=== PATIENT | female | born 1985 | race Caucasian/White ===

== ENCOUNTER 2017-10-20 10:57 | Day surgery (SDC) | payer OTHER ==
[2017-10-20 11:33] VITALS: BP 91/53; TEMP 99.8; BMI 32.1
[2017-10-20] MEDS ORDERED: Piperacillin/Tazobactam 3.375 GM in Sodium Chloride 0.9% 100 ML IVPB SCH ×2 (14:15→18:00)
[2017-10-20 14:44] LABS: #Lymphocytes 0.7 thou/uL (1.20-3.40); #Monocytes 0.5 thou/uL (0.11-0.59); #Neutrophils 8.7 thou/uL (1.40-6.50); %Basophils 0.1 % (0.0-1.0); %Eosinophils 0.2 % (0.0-10.0); %Lymphocytes 7.3 % (21.0-51.0); %Monocytes 5.1 % (0.0-10.0); %Neutrophils 87.3 % (42.0-75.0); Hemoglobin 8.7 g/dL (12.0-16.0); Mean Corpuscular HGB CONC 36.3 g/dL (32.0-36.0); Mean Corpuscular Hemoglobin 34.2 pg (27.0-31.0); Mean Corpuscular Volume 94.1 fL (78.0-98.0); Mean Platelet Volume 6.3 fL (7.4-10.4); Platelet Count 180 thou/uL (130-400); RBC Distribution Width 11.6 % (11.5-14.5); Red Blood Cell (RBC) Count 2.53 mill/uL (4.20-5.40)
[2017-10-20] MEDS ORDERED: Butorphanol Tartrate 1 MG/ML VIAL ONE (14:48)
[2017-10-20] MEDS: Lidocaine HCl/Epinephrine 5 ML AMPUL IJ ONE (15:00)
[2017-10-20 15:03] LABS: ALT (SGPT) 9 U/L (8-55); AST (SGOT) 12 U/L (5-34); Albumin 3.2 g/dL (3.5-5.0); Alkaline Phosphatase 62 U/L (40-150); Anion Gap 11 mmol/L (10-20); BUN (Urea Nitrogen) 15 mg/dL (7.0-18.7); Bilirubin, Total 0.3 mg/dL (0.2-1.2); Calc. Creatinine Clearance 134 mL/min (70-130); Calcium 8.7 mg/dL (7.8-10.44); Carbon Dioxide 23 mmol/L (22-29); Chloride 106 mmol/L (98-107); Estimated GFR-MDRD 79; Globulin 3.3 g/dL (2.4-3.5); Glucose 96 mg/dL (70-105); Potassium 3.8 mmol/L (3.5-5.1); Protein, Total 6.5 g/dL (6.0-8.3); Sodium 136 mmol/L (136-145)
[2017-10-20] MEDS ORDERED: Butorphanol Tartrate 1 MG/ML VIAL SLOW IVP SCH (15:45)
--- NOTE | 2017-10-20 15:57 | HP ---
DATE OF ADMISSION: 10/20/2017 LOCATION OF EVALUATION: Labor and Delivery. REASON FOR EVALUATION: The patient in second trimester with an abscess on the upper buttock area. This is a patient of Dr. Whittington. In brief, this patient has full documentation entered in the EMR; however, when I reviewed the patient's documentation, it was entered in an account number that was incorrect. As the patient has multiple account numbers, there was a visit that is set for 01/17/2018 in the future. That account number is [id number]. The correct account number, which is for today, which is 10/20/2017, is [id number]. HISTORY OF PRESENT ILLNESS: To prevent confusion, even though she has multiple documentations for today's visit, I have decided to do this additional dictation to ensure that she has documentation for today: On 10/20/2017, I evaluated the patient at approximately 12:30 with a chief complaint of possible abscess or boil on her upper back side. She had originally requested a female provider, but since Dr. Whittington was not available, she was okay with my assessment. She is a 32-year-old G2, P1 at 26 weeks and 2 days by stated EDC, here for a possible boil on her backside. She denies a history of diabetes or other medical conditions. She denies similar occurrences in the past. She is a 2, para 1 with a prior vaginal delivery. On vital sign assessment, she was in no acute distress. Vital signs were stable and she was afebrile. I performed a physical exam on the patient and found a superior gluteal cleft abscess about 5 x 5 cm in total induration. Because this was not gynecological, I called Dr. Arthur for assessment. Dr. Arthur came to assess the patient while in triage. I originally called Dr. Arthur at around 12:[address] Arthur did evaluate the patient and performed an I and D at bedside. This was done under local anesthesia. IV Zosyn was given preprocedure. This was also done with 2 mg of Stadol given IV. My last documentation on this patient was at 1522 hours, again in a separate J number, and the patient was now status post I and D from Dr. Arthur's procedure. I discharged her home to continue with her p.o. Augmentin, which she had at bedside. The is to do the dressing changes for her. DIAGNOSES: 1. Second trimester . 2. Cutaneous abscess on the buttocks...s/p I&D 3. Reactive nonstress test. I also obtained baseline labs, which showed a white blood cell count of 10, hematocrit of 23.9, and a complete metabolic profile, which was normal. I advised her to continue taking her vitamins. She will follow up with Dr. Genna Whittington next week. Discharge note: No evidence obstetrical complication. OK for outpatient are MTDD
--- NOTE | 2017-10-20 15:57 | PDOC.EVN ---
Event Note - Event Note Event Note: Information for today (10/20/17) inputted into the J Number for 01/17/18 ( [id number])...all documentation for today's visit (I&D of boil) is in that J number rather than this one. I have dictated to correct this. Please see dictation for H&P and summary of care regarding the visit today which included Dr Arthur I&D of boil located at top of gluteal cleft DX: 1. Second trimester 2. I&D boil 3. Reactive NST Procedue: I&D per General surgery Zosyn given preprocedure I&D done in Triage bed A, under IV stadol 2mg Home with dressing changes CBC with noted anemia CMP nl Home with Augmentin and dressing changes
--- NOTE | 2017-10-20 16:08 | PDOC.EVN ---
Event Note - Event Note Event Note: Meds: I will order tylenol #3 prn, only written for #15 (per Dr Arthur pre dressing change)
[2017-10-20] MEDS ORDERED: Lactated Ringer's 1,000 ML IV SCH (16:30)
[2017-10-20] MEDS ORDERED: Lidocaine 1.5% w/Epi 1:200K 30 ML VIAL (Epid Use) FS SCH (16:30)
--- NOTE | 2017-10-20 18:13 | PDOC.EVN ---
Event Note - Event Note Event Note: Post discharge note: Purulent material sent to culture
--- NOTE | 2017-10-20 19:19 | OP ---
DATE OF PROCEDURE: 10/20/2017 PREOPERATIVE DIAGNOSIS: Right gluteal abscess. POSTOPERATIVE DIAGNOSIS: Right gluteal abscess. PROCEDURES PERFORMED: Incision and drainage of right gluteal abscess. INDICATIONS FOR PROCEDURE: A 32-year-old woman, a 26 weeks' gestation of intrauterine , pre sented with perirectal pain. Clinical examination was consistent with acute right gluteal/perirectal abscess. This requires drainage. CONDITION DESCRIPTION OF PROCEDURE: Informed consent obtained from the patient who was placed in the left lateral recumbent position. The left gluteal fold was widely sterilely prepped and draped in u sual fashion. The skin was anesthetized with 1% lidocaine with epinephrine. A crucifix incision is made using 11 scalpel over the dome of the palpated fluctuance. Large amount of purulent pus was emily cuated from the abscess cavity which was irrigated with saline and then packed with gauze. The patie nt tolerated procedure without any apparent complications. Sterile dressings and mesh pants was appl ied. She will be discharged home at the discretion of the . She requires no further follow up from General Surgery except for as needed. I have instructed her to continue with sitz baths after e ach bowel movement. Dressing changes consist of wet to dry saline saturated gauze twice daily and as needed. The patient indicates understanding of the information given. I answered their questions. Oral antibiotics have been prescribed by primary service.
== END 2017-10-20 17:45 | disposition home or self-care (01) ==
LOC: L&D/OP 10:57
PROVIDERS: ATTEND Obstetrics & Gynecology
PROC: 0J990ZZ Drainage of Buttock Subcutaneous Tissue and Fascia, Open Approach (ICD-10-PCS; principal; 2017-10-20)
DX: O99.712 Diseases of the skin and subcutaneous tissue complicating pregnancy, second trimester (principal); L02.31 Cutaneous abscess of buttock; O99.012 Anemia complicating pregnancy, second trimester; D64.9 Anemia, unspecified; Z3A.26 26 weeks gestation of pregnancy
CPT/HCPCS: 10060; 36415; 80053; 85025; 87070; 87077; 87186; 87205; 96360; 96361; 96366; 96372; 96375; 99283; J0595; J2543; J3490; J7050

== ENCOUNTER 2017-12-11 09:41 | Day surgery (SDC) | payer OTHER ==
[2017-12-11 10:30] VITALS: BP 113/67; TEMP 98.8; BMI 32.9
[2017-12-11 10:51] LABS: Amnisure Test No Membranes Rupture (No Rupture)
[2017-12-11 10:52] LABS: Amnisure Internal Control QC ACCEPTABLE (ACCEPTABLE)
--- NOTE | 2017-12-11 12:20 | PDOC.FPROB ---
FMR OB H&P: HPI - History of Present Illness Chief Complaint: leakage of fluid Indentification: 32 year old @ 34.5 weeks by LMP c/w 1T sono History of Present Illness: Pt is a 32 year old @ 34.5 by LMP (ISAODRA 01/17/2018) who presents for evaluation for premature rupture of membranes. She states that early this morning 2-3 minutes after urinating, she noted a small trickle of thin, clear liquid. She denies any contractions, decrease in FM, recent trauma, fevers , or chills. No major complications with her thus far. Primary Care Physician: Dr. Genna Whittington FMR OB H&P: Current - Care : 2 Para: 1 Gestational age: 34.5 Due date: 01/17/2018 Dating Criteria: LMP Course/Complications: Anemia - OB Labs Blood type: O RH: positive HIV: negative RPR: negative HepBsAg: negative Rubella: non-immune Pap Smear: Per pt, May 2017 and was normal 1 hour gtt: 135 GBS: unknown H&H: 9.1/26.1 FMR OB H&P: History - Past Medical History PMH: None - OB History OB History: First - delivered viable term infant at 38 weeks. 7.5 lbs. No complications. - [employer] History [employer] History: Menarche @ 14 LMP 04/12/2017 Periods are regular and occur monthly. No hx of STIs. No hx of abnormal Paps - Surgical History Sx History: None - Social History Social History: Denies alcohol, tobacco, and drug use. - Family History Family History: No medical problems run in the family. FMR OB H&P: Medications - Current Home Medications: Medication Instructions Recorded Confirmed Type Ferrous Sulfate [Iron] 325 mg PO DAILY 10/20/17 12/11/17 History 21/Iron Fu/Folic Acid 1 tablet PO DAILY 10/20/17 12/11/17 History [ Complete Caplet] Allergies/Adverse Reactions: Allergies Allergy/AdvReac Type Severity Reaction Status Date / Time No Known Allergies Allergy Verified 12/11/17 10:30 FMR OB H&P: ROS - Review of Systems General: denies: fever/chills, recent trauma Eyes: denies: eye pain Cardiovascular: denies: chest pain, palpitation Respiratory: denies: shortness of breath Gastrointestinal: denies: abdominal pain Genitourinary (Female): denies: dysuria, vaginal discharge Musculoskeletal: denies: pain, swelling Neurologic: denies: headache Integumentary: denies: rash FMR OB H&P: Vital Signs - Maternal Vital signs: Vital Signs - First Documented Temp Pulse Resp BP 98.8 F 64 18 113/67 12/11/17 10:19 12/11/17 10:19 12/11/17 10:19 12/11/17 10:19 - Heart Tones Baseline: 120 Variability: moderate Acceleration: present Deceleration: absent Category: category 1 [place] contractions every: Absent FMR OB H&P: Physical Exam - Physical Exam General: NAD HEENT: normocephalic and atraumatic, EOMI, MMM Heart: RRR, normal S1/S2, no murmurs/rubs/gallops, pulses present General: CTAB, no respiratory distress Abdomen: soft, gravid, non-tender Musculoskeletal: FROM in all four extremities Neurological: cranial nerves II through XII intact Skin: no rash Psychiatric: normal mood and affect FMR OB H&P: Results - Labs Lab results: Laboratory Results - last 24 hr 12/11/17 10:32 Amnio Swab Test No Membranes Rupture FMR OB H&P: A/P - Problem List (1) Encounter for suspected premature rupture of membranes, with rupture of membranes not found Status: Suspected Code(s): Z03.71 - ENCNTR FOR SUSP PROB W AMNIO CAVITY AND MEMBRANE RULED OUT Assessment and Plan: - with negative amnisure, normal physical exam and reassuring strip, ROM unlikely. - Will discharge with labor precautions. - instructed to follow-up with Dr. Whittington for routine OB care. (2) Anemia affecting in third trimester Status: Acute Code(s): O99.013 - ANEMIA COMPLICATING , THIRD TRIMESTER Assessment and Plan: Continue PO iron supplementation Discussion: Date/Time: 12/11/17 6174 This H&P was discussed with Dr. Lnyn who agrees with the above documentation and plan. Attending Addendum - Attending Addendum Date/Time: 12/11/17 3257 I personally evaluated the patient and discussed the management with Dr. Arthur. I agree with and repeated the History, Examination, Assessment and Plan documented above with any addition or exceptions noted below. I am seeing the patient for Dr. Nicolas, who had an urgent case. Negative amnisure. FHTs cat 1. Rare ctx. Will d/c with return precautions discussed.
== END 2017-12-11 12:25 | disposition home or self-care (01) ==
LOC: L&D/OP 09:41
PROVIDERS: ATTEND Obstetrics & Gynecology
DX: O99.89 Other specified diseases and conditions complicating pregnancy, childbirth and the puerperium (principal); N89.8 Other specified noninflammatory disorders of vagina; O99.013 Anemia complicating pregnancy, third trimester; D64.9 Anemia, unspecified; Z79.899 Other long term (current) drug therapy; Z3A.34 34 weeks gestation of pregnancy
CPT/HCPCS: 84112; 99283

== ENCOUNTER 2018-01-05 06:04 | Day surgery (SDC) | payer OTHER ==
[2018-01-05 06:51] VITALS: BMI 33.3
[2018-01-05 07:31] LABS: Amnisure Test No Membranes Rupture (No Rupture)
[2018-01-05 07:32] LABS: Amnisure Internal Control QC ACCEPTABLE (ACCEPTABLE)
== END 2018-01-05 09:30 | disposition home or self-care (01) ==
LOC: L&D/OP 06:04
PROVIDERS: ATTEND Obstetrics & Gynecology
DX: O99.89 Other specified diseases and conditions complicating pregnancy, childbirth and the puerperium (principal); N89.8 Other specified noninflammatory disorders of vagina; O99.013 Anemia complicating pregnancy, third trimester; D64.9 Anemia, unspecified; Z3A.38 38 weeks gestation of pregnancy; Z79.899 Other long term (current) drug therapy
CPT/HCPCS: 76815; 84112; 99283

== ENCOUNTER 2018-01-09 02:09 | Inpatient (IN) | payer MEDICAID, OTHER, SELFPAY ==
[2018-01-09 02:48] VITALS: BMI 33.6
[2018-01-09] MEDS ORDERED: Acetaminophen 500 MG TAB PO PRN (03:18)
[2018-01-09] MEDS ORDERED: Butorphanol Tartrate 1 MG/ML VIAL SLOW IVP PRN (03:18)
[2018-01-09] MEDS ORDERED: Lactated Ringer's 1,000 ML IV SCH (03:18)
[2018-01-09] MEDS ORDERED: Promethazine HCl 25 MG/ML VIAL IM PRN ×3 (03:18→13:10)
[2018-01-09] MEDS ORDERED: Ondansetron PF 4 MG/2 ML Vial IVP PRN ×3 (03:18→13:10)
[2018-01-09] MEDS ORDERED: NS / Oxytocin 40 units/1000ml 1,000 ML IV SCH ×2 (03:30→13:15)
[2018-01-09] MEDS ORDERED: NS w/ Oxytocin 10 units 500 ML IV SCH ×2 (03:30)
[2018-01-09] MEDS ORDERED: Misoprostol 200 MCG TAB RC PRN (03:30)
[2018-01-09] MEDS ORDERED: Lidocaine 1% (PF) 30 ML VIAL SC PRN (03:30)
[2018-01-09] MEDS ORDERED: Ibuprofen 800 MG TAB PO PRN (03:30)
[2018-01-09 03:41] LABS: Hemoglobin 10.3 g/dL (12.0-16.0); Mean Corpuscular Hemoglobin 33.7 pg (27.0-31.0); Mean Corpuscular Volume 96.3 fL (78.0-98.0); Mean Platelet Volume 7.1 fL (7.4-10.4); Platelet Count 208 thou/uL (130-400); RBC Distribution Width 12.2 % (11.5-14.5); Red Blood Cell (RBC) Count 3.07 mill/uL (4.20-5.40); White Blood Cell (WBC) Count 8.2 thou/uL (4.8-10.8)
[2018-01-09] MEDS ORDERED: Fentanyl 4 mcg/Bup 0.1% Cadd 100 ML ONE (04:01)
[2018-01-09 04:17] LABS: HBSAg Index 0.22 S/CO (0-0.99); Hep B Surf Ag Non-Reactive S/CO (NonReactive)
[2018-01-09] MEDS ORDERED: diphenhydrAMINE 50 MG/ML VIAL IVP PRN (04:44)
[2018-01-09] MEDS ORDERED: Naloxone HCl 0.4 mg/ml Vial IVP PRN ×2 (04:44)
[2018-01-09] MEDS ORDERED: ePHEDrine/0.9% NaCl/PF SYRINGE 50 mg/10 ml SLOW IVP PRN (04:44)
[2018-01-09] MEDS ORDERED: Acetaminophen 325 MG TAB PO PRN (04:44)
[2018-01-09] MEDS ORDERED: Eucerin (Mineral Oil/Petrolatum,White) 30 gm Jar TOP PRN (04:44)
[2018-01-09] MEDS ORDERED: Lactated Ringer's 500 ML IV PRN (04:44)
[2018-01-09] MEDS ORDERED: Fentanyl 4 mcg/Bupivacaine 0.1% Cassette 100 ML EPIDURAL SCH (04:45)
[2018-01-09] MEDS ORDERED: Communication Order-Pharmacy FS SCH (04:45)
[2018-01-09] MEDS: Lactated Ringer's 1,000 ML IV SCH ×3 (05:21→09:27)
[2018-01-09 05:38] LABS: Syphilis Antibody Nonreactive (Nonreactive); Syphilis Antibody Index 0.05 S/CO (<1.00 Non-Reactive)
[2018-01-09] MEDS ORDERED: Lidocaine 1% (PF) 30 ML VIAL ONE (06:11)
[2018-01-09] MEDS ORDERED: NS / Oxytocin 40 units/1000ml 0 ML ONE (06:11)
[2018-01-09] MEDS ORDERED: Bisacodyl 10 MG SUPP PR PRN (13:10)
[2018-01-09] MEDS ORDERED: Adacel (T-DAP) 0.5 ML VIAL IM ONE (13:10)
[2018-01-09] MEDS ORDERED: Benzocaine/Menthol 20-0.5% 60 ML CAN TOP PRN (13:10)
[2018-01-09] MEDS ORDERED: Milk Of Magnesia 30 ML UDCUP PO PRN (13:10)
[2018-01-09] MEDS ORDERED: Lanolin Ointment 7 GM TUBE TOP PRN (13:10)
[2018-01-09] MEDS ORDERED: Preparation H Ointment 28 GM TUBE PR PRN (13:10)
[2018-01-09] MEDS ORDERED: diphenhydrAMINE 25 MG CAP PO PRN (13:10)
[2018-01-09] MEDS ORDERED: HYDROcodone/Acetaminophen 5/325 mg Tablet PO PRN (13:10)
--- NOTE | 2018-01-09 13:26 | DN ---
DATE OF PROCEDURE: 01/09/2018 ADMITTING DIAGNOSES: 1. A 32-year-old G2, P1 at 38 weeks and 6 days with spontaneous rupture of membranes with thick meco nium. 2. Nonreassuring heart tracing with minimal variability, resolved to category 1 tracing after 1 liter IV fluid bolus and amnio infusion. 3. GBS negative. 4. Augmentation of labor with Pitocin. POSTOPERATIVE DIAGNOSES: 1. A 32-year-old G2, P1 at 38 weeks and 6 days with spontaneous rupture of membranes with thick meco nium. 2. Nonreassuring heart tracing with minimal variability, resolved to category 1 tracing after 1 liter IV fluid bolus and amnio infusion. 3. GBS negative. 4. Augmentation of labor with Pitocin. 5. Live born male with Apgars of 8 and 9 at 1 and 5 minutes respectively. Weight unavailable at the time of dictation. CLINICAL HISTORY: This patient is a 32-year-old female, G2, P1, with a previous term vaginal d elivery who presented to Labor and Delivery shortly after 1:00 a.m. with a complaint of spontaneous r upture of membranes. She called her physician prior to presentation and noted that she had leakage o f fluid that was dark brown to green. The patient was instructed to go to the Labor and Delivery, sh e was evaluated and noted to have thick meconium and initially was called 1 cm and -3 station extreme ly posterior. After an IV fluid bolus was obtained and the patient had an amnio infusion initiated s he actually was 4 cm, 80% effaced and -3 station. The patient's tracing was a category 2, which reso lved to a category 1 with spontaneous accelerations and contractions q.4-9 minutes. The patient was allowed to continue with this tracing for several hours to assure that she had recovered and she requ ested an epidural for maternal analgesia. Once the epidural was placed. She received adequate pain relief and Pitocin was then started when appropriate. The patient continued to progress to complete cervical dilation and +2 station and then began to push. DETAILS OF PROCEDURE: With great maternal effort, the patient was able to push the vertex to c rowning in the AMADOU position. There was noted a loose nuchal cord, which was reduced at the perineum. The anterior shoulder followed by the posterior shoulder followed by the remainder of the infant's body was delivered. The patient up to this point did not have any other signs of meconium; however, with delivery, it was noted meconium fluid and staining of the placenta. The cord was doubly clamped and cut and the was placed on the maternal abdomen with stimulation by the nurses in attendance to delivery. The attention was turned to the introitus where the placenta was delivered spontaneously intact with a 3-vessel cord and this placenta was stained with meconium with a peripher al insertion. Once the placenta was removed the uterus was immediately firm. Exploration of the int roitus revealed a first degree midline laceration which was repaired in a running locking fashion wit h excellent hemostasis. The knot was buried behind the hymen for patient comfort. Once this repair was completed, the patient was allowed to recover on labor and delivery in satisfactory condition wit h her . Again, the was a liveborn male with Apgars of 8 and 9 at 1 and 5 minutes respec tively with a weight unavailable immediately after delivery. There were no other issues surrounding this delivery.
[2018-01-09] MEDS: Ibuprofen 800 MG TAB PO SCH ×2 (15:38→21:10)
[2018-01-09] MEDS: HYDROcodone/Acetaminophen 5/325 mg Tablet PO PRN ×2 (16:44→23:43)
[2018-01-09] MEDS: Ferrous Sulfate 325 MG TAB PO SCH (16:58)
[2018-01-09] MEDS: Docusate Calcium (SURFAK) 240 MG CAP PO SCH (21:10)
[2018-01-10] MEDS: Ibuprofen 800 MG TAB PO SCH ×3 (05:06→21:39)
[2018-01-10] MEDS: Ferrous Sulfate 325 MG TAB PO SCH ×2 (08:07→15:53)
[2018-01-10] MEDS: Docusate Calcium (SURFAK) 240 MG CAP PO SCH ×2 (09:14→21:39)
[2018-01-10] MEDS: Prenatal Vitamin 1 TAB PO SCH (09:14)
[2018-01-11] MEDS: Ibuprofen 800 MG TAB PO SCH (05:56)
[2018-01-11 09:06] VITALS: BP 106/60; TEMP 98.4
[2018-01-11] MEDS: Ferrous Sulfate 325 MG TAB PO SCH (09:40)
[2018-01-11] MEDS: Prenatal Vitamin 1 TAB PO SCH (09:41)
[2018-01-11] MEDS: Docusate Calcium (SURFAK) 240 MG CAP PO SCH (09:41)
[2018-01-11] MEDS ORDERED: Bupivacaine/Epinephrine 0.25% 30 ML VIAL ONE (09:48)
== END 2018-01-11 12:55 | disposition home or self-care (01) | DRG 807 ==
LOC: L&D/OP 02:09 → L&D 02:49 → 3SW 15:26
PROVIDERS: ADMIT Obstetrics & Gynecology; ATTEND Obstetrics & Gynecology
PROC: 10E0XZZ Delivery of Products of Conception, External Approach (ICD-10-PCS; principal; 2018-01-09)
PROC: 0HQ9XZZ Repair Perineum Skin, External Approach (ICD-10-PCS; 2018-01-09)
DX: O99.02 Anemia complicating childbirth (principal); Z37.0 Single live birth; Z3A.38 38 weeks gestation of pregnancy; O77.0 Labor and delivery complicated by meconium in amniotic fluid; O69.81X0 Labor and delivery complicated by cord around neck, without compression, not applicable or unspecified; O70.0 First degree perineal laceration during delivery; D64.9 Anemia, unspecified
CPT/HCPCS: 36415; 51702; 85027; 86780; 86850; 86900; 86901; 87340; 99285; J2001